=== PATIENT | male | born 1950 | race Caucasian/White ===

== ENCOUNTER 2022-10-08 17:09 | Outpatient (CLI) | payer OTHER, SELFPAY ==
--- NOTE | ~2022-10-08 | XR_ITS ---
EXAMINATION: XR knee LT min 4V DATE: 10/08/2022 17:29 INDICATION: Left knee pain TECHNIQUE: Four views of the left knee were obtained. COMPARISON: None. FINDINGS: Alignment is normal. No fracture or osteochondral lesion. There is mild tricompartmental os teoarthritis characterized by tiny marginal osteophytes. There is a small knee joint effusion. Soft t issues are unremarkable. IMPRESSION: 1. Osteoarthritis without acute osseous abnormality. Reviewed, dictated and finalized at location F.
== END 2022-10-08 17:10 | disposition home or self-care (01) ==
PROVIDERS: PCP Internal Medicine; Visit Provider Internal Medicine
DX: M25.462 Effusion, left knee (principal); M92.523 Juvenile osteochondrosis of tibia tubercle, bilateral; M17.12 Unilateral primary osteoarthritis, left knee
CPT/HCPCS: 73564